=== PATIENT | male | born 1955 | race Caucasian/White ===

== ENCOUNTER 2018-02-20 00:04 | Emergency (ER) | payer OTHER ==
[~2018-02-20] VITALS: Ht 160 cm; Wt 74.8 kg
--- NOTE | 2018-02-20 00:26 | NUR ---
RECEIVED PATIENT IN ROOM WITH C/O LEFT SIDED BACK RADIATING DOWN TO LEG, SEEN IN ER THIS AM FOR SAME. DX WITH SCIATICA, PAIN NOW WORST, ER DR AT BEDSIDE, ORDERS NOTED.
[2018-02-20] MEDS ORDERED: HYDROMORPHONE 1 MG/1 ML DISP.SYRIN IM ONE (00:30)
[2018-02-20] MEDS ORDERED: ONDANSETRON 4 MG/2 ML VIAL IM ONE (00:30)
[2018-02-20] MEDS ORDERED: ONDANSETRON 4 MG/2 ML VIAL ONE (00:32)
[2018-02-20] MEDS ORDERED: HYDROMORPHONE 2 MG/1 ML DISP.SYRIN ONE (00:32)
--- NOTE | 2018-02-20 00:32 | NUR ---
MEDICATED WITTH DILAUDID 2MG IM AND ZOFRAN 4MG IM.
--- NOTE | 2018-02-20 00:46 | NUR ---
FEELING BETTER, PAIN NOW 5/10, DISCHARGE HOME WITH RX AND INSTRUCTIONS TO F/U WITH PMD IN AM. AMBULATE OUT OF ER WITH IN STABLE CONDITION.
[2018-02-20 00:48] VITALS: BP 128/87
[2018-02-20] MEDS ORDERED: DILT180C66 PO (16:58)
[2018-02-20] MEDS ORDERED: TAMS-3 PO (16:58)
[2018-02-20] MEDS ORDERED: HYDROCHLOROTHIAZIDE PO (16:58)
[2018-02-20] MEDS ORDERED: CANDESARTAN PO (16:58)
== END 2018-02-20 00:45 | disposition home or self-care (01) ==
LOC: ER 00:10
DX: M54.42 Lumbago with sciatica, left side (principal); I10 Essential (primary) hypertension
CPT/HCPCS: 96372 ×2; 99283; J1170; J2405; A4663

== ENCOUNTER 2019-12-01 16:13 | Emergency (ER) | payer OTHER ==
[~2019-12-01] VITALS: Ht 162.6 cm; Wt 74.8 kg
[~2019-12-01 16:13] MED LIST: CANDESARTAN PO; DILT180C66 PO; HYDROCHLOROTHIAZIDE PO; TAMS-3 PO
--- NOTE | 2019-12-01 17:00 | NUR ---
Dr. Polanco at the bedside for MSE.
[2019-12-01] MEDS ORDERED: LIDOCAINE 2% (UROJET) 10 ML JELLY MM ONE (17:15)
--- NOTE | 2019-12-01 17:28 | NUR ---
Patient is crying quietly & saying, "I feel so much better." MD notified. Comfort and safety measures maintained.
[2019-12-01 17:46] LABS: *BILIRUBIN,URIN NEGATIVE (NEGATIVE); *CLARITY,URINE CLEAR (CLEAR); *COLOR,URINE YELLOW (YELLOW); *KETONES,URINE NEGATIVE (NEGATIVE); *UROBILINOGEN,URINE 0.2 E.U./dl (NORMAL); LEUKOCYTE ESTERASE ,URINE NEGATIVE (NEGATIVE); NITRITE, URINE NEGATIVE (NEGATIVE); UGLUCOSE TRACE (NEGATIVE)
[2019-12-01 17:49] LABS: BASOPHILS % (AUTO) 0.3 % (0.0-2.0); EOSINOPHILS # (AUTO) 0.1 K/uL (0.0-0.7); EOSINOPHILS % (AUTO) 0.6 % (0.0-7.0); HEMATOCRIT 40.2 % (36.7-47.1); LYMPHOCYTES # (AUTO) 0.7 K/uL (20.0-40.0); LYMPHOCYTES % (AUTO) 6.7 % (20.5-51.5); MEAN CORPUSCULAR HGB CONC 35 g/dL (32.5-36.3); MEAN CORPUSCULAR VOLUME 91.7 fL (73.0-96.2); MONOCYTES # (AUTO) 0.6 K/uL (2.0-10.0); MONOCYTES % (AUTO) 5.6 % (0.0-11.0); NEUTROPHILS % (AUTO) 86.8 % (38.5-71.5); PLATELET COUNT (AUTO) 254 K/uL (152-348); RED BLOOD CELL COUNT(AUTO) 4.38 MIL/uL (4.06-5.63); WHITE BLOOD COUNT (AUTO) 10.4 K/uL (3.6-10.2)
[2019-12-01 17:51] LABS: *BLOOD, URINE TRACE (NEGATIVE)
[2019-12-01 17:59] LABS: BILIRUBIN,TOTAL 1.1 mg/dL (0.2-1.0); POTASSIUM 3.5 mmol/L (3.5-5.1); TOTAL PROTEIN, SERUM 6.4 g/dL (6.4-8.2)
--- NOTE | 2019-12-01 19:11 | NUR ---
Full SBAR report given to MORENO Mares.
--- NOTE | 2019-12-01 19:46 | NUR ---
Received patient from Moshe MAYER, no signs of distress noted at this time
--- NOTE | 2019-12-01 20:12 | NUR ---
Urine foleybag switched to leg bag at this time
--- NOTE | 2019-12-01 20:12 | NUR ---
Patient discharged to home in stable condition. Ambulated with steady gait at this time. Written and verbal after care instructions given. Took all belongings, Banks care instructions given, instructed to follow up. 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 Patient verbalizes understanding of instructions. Stressed follow up or return to ER for worsening s/s.
[2019-12-01 20:15] VITALS: BP 148/87
[2019-12-01 20:20] LABS: BACTERIA,URINE FEW /HPF (NONE SEEN); SQUAMOUS EPITHELIAL CELL,UR FEW /HPF (NONE SEEN); WBC,URINE 0-3 /HPF (0-3)
== END 2019-12-01 20:15 | disposition home or self-care (01) ==
LOC: ER 16:16
DX: R33.9 Retention of urine, unspecified (principal); I10 Essential (primary) hypertension; R19.7 Diarrhea, unspecified
CPT/HCPCS: 36415; 51702; 74021; 85025; A4663

== ENCOUNTER 2020-04-01 17:44 | Inpatient (IN) | payer OTHER ==
[~2020-04-01] VITALS: Ht 162.6 cm; Wt 74.8 kg
[~2020-04-01 17:44] MED LIST changes: -CANDESARTAN PO; +CEPH-570 PO; -HYDROCHLOROTHIAZIDE PO; +MECL-159 PO
[2020-04-01] MEDS ORDERED: CAND1TAB16 PO (18:13)
[2020-04-01] MEDS ORDERED: DILT180C90 PO (18:13)
[2020-04-01] MEDS ORDERED: CARB-93 PO (18:13)
[2020-04-01] MEDS ORDERED: VITAMIN D PO (18:13)
[2020-04-01] MEDS ORDERED: ONDANSETRON 4 MG/2 ML VIAL IV ONE (20:00)
[2020-04-01] MEDS ORDERED: IV NORMAL SALINE 1000 ML BAG IV ONE (20:00)
[2020-04-01 21:15] LABS: BASOPHILS % (AUTO) 0.2 % (0.0-2.0); EOSINOPHILS % (AUTO) 0.1 % (0.0-7.0); HEMATOCRIT 37.2 % (36.7-47.1); HEMOGLOBIN 13.2 g/dL (12.5-16.3); LYMPHOCYTES # (AUTO) 0.5 K/uL (20.0-40.0); LYMPHOCYTES % (AUTO) 7.3 % (20.5-51.5); MEAN CORPUSCULAR HEMOGLOBIN 32.6 uug (23.8-33.4); MEAN CORPUSCULAR HGB CONC 35 g/dL (32.5-36.3); MEAN CORPUSCULAR VOLUME 91.9 fL (73.0-96.2); MONOCYTES # (AUTO) 0.2 K/uL (2.0-10.0); NEUTROPHILS # (AUTO) 6.2 K/uL (1.8-8.9); NEUTROPHILS % (AUTO) 89.4 % (38.5-71.5); PLATELET COUNT (AUTO) 241 K/uL (152-348); RED BLOOD CELL COUNT(AUTO) 4.05 MIL/uL (4.06-5.63); WHITE BLOOD COUNT (AUTO) 6.9 K/uL (3.6-10.2)
[2020-04-01] MEDS ORDERED: ONDANSETRON 4 MG/2 ML VIAL ONE (21:16)
[2020-04-01 21:29] LABS: BILIRUBIN,DIRECT 0.3 mg/dL (0.0-0.2); CREATININE 0.7 mg/dL (0.6-1.3); POTASSIUM 3.7 mmol/L (3.5-5.1); TOTAL PROTEIN, SERUM 6.7 g/dL (6.4-8.2)
[2020-04-01] MEDS ORDERED: IV NS 1000 ML 1,000 ML IV ONE (21:45)
[2020-04-02] VITALS (7 sets, daily range): BP systolic 116–149; BP diastolic 71–85
[2020-04-02] MEDS ORDERED: ONDANSETRON 4 MG/2 ML VIAL IV PRN (00:30)
[2020-04-02] MEDS ORDERED: ACETAMINOPHEN 650 MG SUPP.RECT RC PRN (00:30)
[2020-04-02] MEDS ORDERED: Z GUARD REMEDY PASTE 57 GM TUBE TOP PRN (00:30)
[2020-04-02] MEDS: ENOXAPARIN SODIUM 40 MG/0.4 ML DISP.SYRIN SQ SCH ×2 (00:39→21:03)
[2020-04-02] MEDS: IV NS 1000 ML 1,000 ML IV PRN ×2 (00:43→18:16)
[2020-04-02] MEDS ORDERED: DILT90TA10 PO (07:35)
[2020-04-02 08:45] LABS: BILIRUBIN,TOTAL 1.9 mg/dL (0.2-1.0); CREATININE 0.7 mg/dL (0.6-1.3); POTASSIUM 4.3 mmol/L (3.5-5.1); TOTAL PROTEIN, SERUM 6.3 g/dL (6.4-8.2)
[2020-04-02] MEDS: HYDROCHLOROTHIAZIDE 12.5 MG CAPSULE PO SCH (09:00)
[2020-04-02] MEDS ORDERED: Medication Not On Formulary EA (Candesartan/Hydrochlorothiazid (Candesartan-Hctz 32-12.5 PO SCH (09:00)
[2020-04-02] MEDS: DILTIAZEM HCL 90 MG TABLET PO SCH (09:00)
[2020-04-02] MEDS ORDERED: DILTIAZEM HCL CD 180 MG CAP.SR.24H PO SCH (09:00)
[2020-04-02] MEDS ORDERED: PANTOPRAZOLE SODIUM 40 MG VIAL IV SCH (09:00)
[2020-04-02] MEDS: LOSARTAN POTASSIUM 50 MG TABLET PO SCH (09:00)
[2020-04-02] MEDS ORDERED: FAMOTIDINE. 20 MG/2 ML VIAL IV ONE (09:13)
[2020-04-02] MEDS: FAMOTIDINE. 20 MG/2 ML VIAL IV SCH ×2 (09:14→21:03)
[2020-04-02 09:54] LABS: BASOPHILS % (AUTO) 0.1 % (0.0-2.0); EOSINOPHILS % (AUTO) 0.6 % (0.0-7.0); HEMATOCRIT 39.5 % (36.7-47.1); HEMOGLOBIN 13.8 g/dL (12.5-16.3); LYMPHOCYTES # (AUTO) 0.7 K/uL (20.0-40.0); LYMPHOCYTES % (AUTO) 8.6 % (20.5-51.5); MEAN CORPUSCULAR HEMOGLOBIN 32.6 uug (23.8-33.4); MEAN CORPUSCULAR HGB CONC 35 g/dL (32.5-36.3); MEAN CORPUSCULAR VOLUME 93.2 fL (73.0-96.2); MONOCYTES # (AUTO) 0.6 K/uL (2.0-10.0); MONOCYTES % (AUTO) 7.2 % (0.0-11.0); NEUTROPHILS # (AUTO) 6.7 K/uL (1.8-8.9); NEUTROPHILS % (AUTO) 83.5 % (38.5-71.5); PLATELET COUNT (AUTO) 277 K/uL (152-348); RED BLOOD CELL COUNT(AUTO) 4.24 MIL/uL (4.06-5.63); WHITE BLOOD COUNT (AUTO) 8.1 K/uL (3.6-10.2)
[2020-04-02 16:04] LABS: *BILIRUBIN,URIN NEGATIVE (NEGATIVE); *CLARITY,URINE CLEAR (CLEAR); *COLOR,URINE YELLOW (YELLOW); *KETONES,URINE 2+ (NEGATIVE); *UROBILINOGEN,URINE 0.2 E.U./dl (NORMAL); LEUKOCYTE ESTERASE ,URINE NEGATIVE (NEGATIVE); NITRITE, URINE NEGATIVE (NEGATIVE); PH,URINE 6.5 (5.0-8.0); UGLUCOSE NEGATIVE (NEGATIVE)
[2020-04-02 16:06] LABS: *BLOOD, URINE TRACE LYSED (NEGATIVE)
[2020-04-02 16:52] LABS: BACTERIA,URINE NONE SEEN /HPF (NONE SEEN); SQUAMOUS EPITHELIAL CELL,UR NONE SEEN /HPF (NONE SEEN); WBC,URINE 0-3 /HPF (0-3)
[2020-04-03] VITALS: BP 114/65
[2020-04-03 04:35] VITALS: BP 128/71
[2020-04-03 07:36] LABS: BASOPHILS % (AUTO) 0.5 % (0.0-2.0); EOSINOPHILS # (AUTO) 0.1 K/uL (0.0-0.7); EOSINOPHILS % (AUTO) 2.6 % (0.0-7.0); HEMATOCRIT 39.6 % (36.7-47.1); HEMOGLOBIN 13.8 g/dL (12.5-16.3); LYMPHOCYTES # (AUTO) 1.2 K/uL (20.0-40.0); LYMPHOCYTES % (AUTO) 23.6 % (20.5-51.5); MEAN CORPUSCULAR HEMOGLOBIN 32.7 uug (23.8-33.4); MEAN CORPUSCULAR HGB CONC 35 g/dL (32.5-36.3); MEAN CORPUSCULAR VOLUME 93.6 fL (73.0-96.2); MONOCYTES # (AUTO) 0.5 K/uL (2.0-10.0); MONOCYTES % (AUTO) 9.4 % (0.0-11.0); NEUTROPHILS # (AUTO) 3.2 K/uL (1.8-8.9); NEUTROPHILS % (AUTO) 63.9 % (38.5-71.5); PLATELET COUNT (AUTO) 266 K/uL (152-348); RED BLOOD CELL COUNT(AUTO) 4.23 MIL/uL (4.06-5.63); WHITE BLOOD COUNT (AUTO) 4.9 K/uL (3.6-10.2)
[2020-04-03 07:53] LABS: CREATININE 0.9 mg/dL (0.6-1.3); MAGNESIUM 1.8 mg/dL (1.8-2.4); PHOSPHOROUS 2.5 mg/dL (2.5-4.9); POTASSIUM 3.6 mmol/L (3.5-5.1); URIC ACID 4.4 mg/dL (3.5-7.2)
[2020-04-03] MEDS: HYDROCHLOROTHIAZIDE 12.5 MG CAPSULE PO SCH (08:08)
[2020-04-03] MEDS: LOSARTAN POTASSIUM 50 MG TABLET PO SCH (08:08)
[2020-04-03] MEDS: FAMOTIDINE. 20 MG/2 ML VIAL IV SCH (08:17)
[2020-04-03] MEDS: IV NS 1000 ML 1,000 ML IV PRN (08:23)
[2020-04-03] MEDS: DILTIAZEM HCL 90 MG TABLET PO SCH (08:40)
[2020-04-03 08:54] LABS: THYROID STIMULATING HORMONE 2.49 mIU/mL (0.358-3.740)
[2020-04-03 12:00] VITALS: BP 140/74
[2020-04-03] MEDS ORDERED: CEFTRIAXONE 1 G in IV DEXTROSE 5% 50 ML IV SCH (15:00)
[2020-04-03 16:00] VITALS: BP 124/77
[2020-04-03 20:00] VITALS: BP 122/72
[2020-04-03] MEDS: FAMOTIDINE 20 MG TABLET PO SCH (21:00)
[2020-04-03] MEDS: risperiDONE 1 MG TABLET PO SCH (21:00)
[2020-04-03] MEDS: ENOXAPARIN SODIUM 40 MG/0.4 ML DISP.SYRIN SQ SCH (21:01)
[2020-04-03] MEDS ORDERED: VANCOMYCIN IV 1,500 MG in IV DEXTROSE 5% 500 ML IV ONE (21:30)
[2020-04-03] MEDS ORDERED: VANCOMYCIN HCL 500 MG VIAL ONE (22:44)
[2020-04-03] MEDS ORDERED: VANCOMYCIN 1000 MG VIAL ONE (22:44)
[2020-04-04] VITALS: BP 130/70
[2020-04-04 04:00] VITALS: BP 134/82
[2020-04-04 07:56] LABS: CREATININE 0.8 mg/dL (0.6-1.3); POTASSIUM 3.4 mmol/L (3.5-5.1)
[2020-04-04] MEDS: risperiDONE 1 MG TABLET PO SCH ×2 (08:00→20:56)
[2020-04-04] MEDS: HYDROCHLOROTHIAZIDE 12.5 MG CAPSULE PO SCH (08:00)
[2020-04-04] MEDS: LOSARTAN POTASSIUM 50 MG TABLET PO SCH (08:00)
[2020-04-04] MEDS: FAMOTIDINE 20 MG TABLET PO SCH ×2 (08:00→20:56)
[2020-04-04] MEDS: DILTIAZEM HCL 90 MG TABLET PO SCH (08:00)
[2020-04-04 08:03] LABS: BASOPHILS % (AUTO) 0.8 % (0.0-2.0); EOSINOPHILS # (AUTO) 0.3 K/uL (0.0-0.7); HEMATOCRIT 40.9 % (36.7-47.1); HEMOGLOBIN 14.4 g/dL (12.5-16.3); LYMPHOCYTES # (AUTO) 1.2 K/uL (20.0-40.0); LYMPHOCYTES % (AUTO) 25.2 % (20.5-51.5); MEAN CORPUSCULAR HGB CONC 35 g/dL (32.5-36.3); MEAN CORPUSCULAR VOLUME 93.8 fL (73.0-96.2); MONOCYTES # (AUTO) 0.4 K/uL (2.0-10.0); MONOCYTES % (AUTO) 8.4 % (0.0-11.0); NEUTROPHILS # (AUTO) 2.9 K/uL (1.8-8.9); NEUTROPHILS % (AUTO) 59.6 % (38.5-71.5); PLATELET COUNT (AUTO) 269 K/uL (152-348); RED BLOOD CELL COUNT(AUTO) 4.36 MIL/uL (4.06-5.63); WHITE BLOOD COUNT (AUTO) 4.8 K/uL (3.6-10.2)
[2020-04-04] MEDS ORDERED: POTASSIUM CHLORIDE 20 MEQ TAB.PRT.SR PO SCH (09:45)
[2020-04-04] MEDS ORDERED: VANCOMYCIN IV 1,250 MG in IV DEXTROSE 5% 250 ML IV SCH (11:00)
[2020-04-04 12:26] VITALS: BP 135/83
[2020-04-04 15:46] VITALS: BP 137/75
[2020-04-04] MEDS: IV NS 1000 ML 1,000 ML IV PRN ×2 (17:04)
[2020-04-04 20:00] VITALS: BP 121/71
[2020-04-04] MEDS: ENOXAPARIN SODIUM 40 MG/0.4 ML DISP.SYRIN SQ SCH (20:59)
[2020-04-05] VITALS: BP 137/88
[2020-04-05 05:07] VITALS: BP 144/86
[2020-04-05 07:37] LABS: BASOPHILS % (AUTO) 0.7 % (0.0-2.0); CREATININE 0.8 mg/dL (0.6-1.3); EOSINOPHILS # (AUTO) 0.4 K/uL (0.0-0.7); EOSINOPHILS % (AUTO) 6.1 % (0.0-7.0); HEMATOCRIT 43.4 % (36.7-47.1); HEMOGLOBIN 14.7 g/dL (12.5-16.3); LYMPHOCYTES # (AUTO) 1.3 K/uL (20.0-40.0); LYMPHOCYTES % (AUTO) 22.6 % (20.5-51.5); MEAN CORPUSCULAR HEMOGLOBIN 32.4 uug (23.8-33.4); MEAN CORPUSCULAR HGB CONC 34 g/dL (32.5-36.3); MEAN CORPUSCULAR VOLUME 95.8 fL (73.0-96.2); MONOCYTES # (AUTO) 0.5 K/uL (2.0-10.0); MONOCYTES % (AUTO) 8.1 % (0.0-11.0); NEUTROPHILS # (AUTO) 3.7 K/uL (1.8-8.9); NEUTROPHILS % (AUTO) 62.5 % (38.5-71.5); PLATELET COUNT (AUTO) 277 K/uL (152-348); POTASSIUM 3.8 mmol/L (3.5-5.1); RED BLOOD CELL COUNT(AUTO) 4.53 MIL/uL (4.06-5.63)
[2020-04-05 08:00] VITALS: BP 137/83
[2020-04-05] MEDS: risperiDONE 1 MG TABLET PO SCH ×2 (08:04→21:00)
[2020-04-05] MEDS: HYDROCHLOROTHIAZIDE 12.5 MG CAPSULE PO SCH (08:04)
[2020-04-05] MEDS: FAMOTIDINE 20 MG TABLET PO SCH ×2 (08:04→21:00)
[2020-04-05] MEDS: LOSARTAN POTASSIUM 50 MG TABLET PO SCH (08:08)
[2020-04-05] MEDS: DILTIAZEM HCL 90 MG TABLET PO SCH (08:09)
[2020-04-05] MEDS: IV NS 1000 ML 1,000 ML IV PRN (09:04)
[2020-04-05 11:00] VITALS: BP 131/72
[2020-04-05] MEDS: LORAZEPAM 2 MG/1 ML VIAL IV PRN ×2 (12:17→18:15)
[2020-04-05] MEDS ORDERED: VANCOMYCIN IV 1,250 MG in IV DEXTROSE 5% 250 ML IV SCH (13:00)
[2020-04-05 16:17] VITALS: BP 142/84
[2020-04-05 21:14] VITALS: BP 142/84
[2020-04-05] MEDS: ENOXAPARIN SODIUM 40 MG/0.4 ML DISP.SYRIN SQ SCH (22:45)
[2020-04-06 00:29] VITALS: BP 148/85
[2020-04-06 06:09] VITALS: BP 145/84
[2020-04-06] MEDS: IV NS 1000 ML 1,000 ML IV PRN (06:37)
[2020-04-06 06:58] LABS: CREATININE 0.8 mg/dL (0.6-1.3); POTASSIUM 4.2 mmol/L (3.5-5.1)
[2020-04-06 07:23] LABS: BASOPHILS % (AUTO) 0.5 % (0.0-2.0); EOSINOPHILS # (AUTO) 0.4 K/uL (0.0-0.7); HEMOGLOBIN 14.6 g/dL (12.5-16.3); LYMPHOCYTES # (AUTO) 1.2 K/uL (20.0-40.0); LYMPHOCYTES % (AUTO) 17.1 % (20.5-51.5); MEAN CORPUSCULAR HEMOGLOBIN 32.7 uug (23.8-33.4); MEAN CORPUSCULAR HGB CONC 33 g/dL (32.5-36.3); MEAN CORPUSCULAR VOLUME 98.3 fL (73.0-96.2); MONOCYTES # (AUTO) 0.6 K/uL (2.0-10.0); MONOCYTES % (AUTO) 8.1 % (0.0-11.0); NEUTROPHILS # (AUTO) 4.9 K/uL (1.8-8.9); NEUTROPHILS % (AUTO) 69.3 % (38.5-71.5); PLATELET COUNT (AUTO) 235 K/uL (152-348); RED BLOOD CELL COUNT(AUTO) 4.47 MIL/uL (4.06-5.63); WHITE BLOOD COUNT (AUTO) 7.1 K/uL (3.6-10.2)
[2020-04-06] MEDS: risperiDONE 1 MG TABLET PO SCH ×2 (08:09→21:28)
[2020-04-06] MEDS: HYDROCHLOROTHIAZIDE 12.5 MG CAPSULE PO SCH (08:09)
[2020-04-06] MEDS: LORAZEPAM 2 MG/1 ML VIAL IV PRN (08:09)
[2020-04-06] MEDS: LOSARTAN POTASSIUM 50 MG TABLET PO SCH (08:09)
[2020-04-06] MEDS: FAMOTIDINE 20 MG TABLET PO SCH ×2 (08:10→21:28)
[2020-04-06] MEDS: DILTIAZEM HCL 90 MG TABLET PO SCH (08:11)
[2020-04-06 12:00] VITALS: BP 135/84
[2020-04-06 17:00] VITALS: BP 124/77
[2020-04-06 21:11] VITALS: BP 137/79
[2020-04-06] MEDS: ENOXAPARIN SODIUM 40 MG/0.4 ML DISP.SYRIN SQ SCH (21:29)
[2020-04-07 00:13] VITALS: BP 130/80
[2020-04-07 04:35] VITALS: BP 156/88
[2020-04-07 06:38] LABS: BASOPHILS % (AUTO) 0.7 % (0.0-2.0); EOSINOPHILS # (AUTO) 0.3 K/uL (0.0-0.7); EOSINOPHILS % (AUTO) 5.6 % (0.0-7.0); HEMATOCRIT 40.7 % (36.7-47.1); HEMOGLOBIN 13.9 g/dL (12.5-16.3); LYMPHOCYTES % (AUTO) 18.3 % (20.5-51.5); MEAN CORPUSCULAR HEMOGLOBIN 32.6 uug (23.8-33.4); MEAN CORPUSCULAR HGB CONC 34 g/dL (32.5-36.3); MEAN CORPUSCULAR VOLUME 95.4 fL (73.0-96.2); MONOCYTES # (AUTO) 0.3 K/uL (2.0-10.0); MONOCYTES % (AUTO) 6.2 % (0.0-11.0); NEUTROPHILS # (AUTO) 3.9 K/uL (1.8-8.9); NEUTROPHILS % (AUTO) 69.2 % (38.5-71.5); PLATELET COUNT (AUTO) 265 K/uL (152-348); RED BLOOD CELL COUNT(AUTO) 4.26 MIL/uL (4.06-5.63); WHITE BLOOD COUNT (AUTO) 5.6 K/uL (3.6-10.2)
[2020-04-07 07:07] LABS: CREATININE 0.8 mg/dL (0.6-1.3); POTASSIUM 3.6 mmol/L (3.5-5.1)
[2020-04-07] MEDS: FAMOTIDINE 20 MG TABLET PO SCH ×2 (08:12→22:40)
[2020-04-07] MEDS: LOSARTAN POTASSIUM 50 MG TABLET PO SCH (08:12)
[2020-04-07] MEDS: HYDROCHLOROTHIAZIDE 12.5 MG CAPSULE PO SCH (08:12)
[2020-04-07] MEDS: risperiDONE 1 MG TABLET PO SCH ×2 (08:12→22:47)
[2020-04-07] MEDS: DILTIAZEM HCL 90 MG TABLET PO SCH (08:14)
[2020-04-07 11:47] VITALS: BP 132/84
[2020-04-07] MEDS: IV NS 1000 ML 1,000 ML IV PRN (14:15)
[2020-04-07 16:38] VITALS: BP 140/80
[2020-04-07 20:40] VITALS: BP 142/82
[2020-04-07] MEDS: ENOXAPARIN SODIUM 40 MG/0.4 ML DISP.SYRIN SQ SCH (21:00)
[2020-04-08 00:16] VITALS: BP 137/80
[2020-04-08 05:04] VITALS: BP 128/77
[2020-04-08 07:12] LABS: BASOPHILS # (AUTO) 0.1 K/uL (0.0-8.0); BASOPHILS % (AUTO) 0.8 % (0.0-2.0); EOSINOPHILS # (AUTO) 0.5 K/uL (0.0-0.7); EOSINOPHILS % (AUTO) 8.6 % (0.0-7.0); HEMOGLOBIN 15.4 g/dL (12.5-16.3); LYMPHOCYTES # (AUTO) 1.7 K/uL (20.0-40.0); LYMPHOCYTES % (AUTO) 26.7 % (20.5-51.5); MEAN CORPUSCULAR HEMOGLOBIN 32.7 uug (23.8-33.4); MEAN CORPUSCULAR HGB CONC 34 g/dL (32.5-36.3); MEAN CORPUSCULAR VOLUME 95.7 fL (73.0-96.2); MONOCYTES # (AUTO) 0.4 K/uL (2.0-10.0); MONOCYTES % (AUTO) 7.2 % (0.0-11.0); NEUTROPHILS # (AUTO) 3.6 K/uL (1.8-8.9); NEUTROPHILS % (AUTO) 56.7 % (38.5-71.5); PLATELET COUNT (AUTO) 273 K/uL (152-348); WHITE BLOOD COUNT (AUTO) 6.3 K/uL (3.6-10.2)
[2020-04-08 07:49] LABS: CREATININE 0.9 mg/dL (0.6-1.3)
[2020-04-08 08:00] VITALS: BP 153/83
[2020-04-08] MEDS: HYDROCHLOROTHIAZIDE 12.5 MG CAPSULE PO SCH (08:18)
[2020-04-08] MEDS: DILTIAZEM HCL 90 MG TABLET PO SCH (08:18)
[2020-04-08] MEDS: risperiDONE 1 MG TABLET PO SCH ×2 (08:18→20:52)
[2020-04-08] MEDS: FAMOTIDINE 20 MG TABLET PO SCH ×2 (08:18→20:51)
[2020-04-08] MEDS: LOSARTAN POTASSIUM 50 MG TABLET PO SCH (08:18)
[2020-04-08 11:00] VITALS: BP 127/80
[2020-04-08 15:23] VITALS: BP 136/84
[2020-04-08 20:06] VITALS: BP 126/75
[2020-04-08] MEDS: LORAZEPAM 2 MG/1 ML VIAL IV PRN (20:41)
[2020-04-08] MEDS: ENOXAPARIN SODIUM 40 MG/0.4 ML DISP.SYRIN SQ SCH (21:01)
[2020-04-09 00:03] VITALS: BP 129/77
[2020-04-09 04:24] VITALS: BP 136/85
[2020-04-09 04:32] VITALS: BP 136/84
[2020-04-09] MEDS: LOSARTAN POTASSIUM 50 MG TABLET PO SCH (10:16)
[2020-04-09] MEDS: DILTIAZEM HCL 90 MG TABLET PO SCH (10:16)
[2020-04-09] MEDS: FAMOTIDINE 20 MG TABLET PO SCH (10:16)
[2020-04-09] MEDS: risperiDONE 1 MG TABLET PO SCH (10:17)
[2020-04-09 11:16] VITALS: BP 134/85
[2020-04-09] MEDS ORDERED: LOSA50TA3 PO (12:27)
[2020-04-09] MEDS ORDERED: FAMO20TA8 PO (12:27)
[2020-04-09] MEDS ORDERED: DILT90TA10 PO (12:27)
[2020-04-09] MEDS ORDERED: ENOX40DI SQ (12:27)
[2020-04-09] MEDS ORDERED: TAMS-3 PO (12:27)
[2020-04-09] MEDS ORDERED: ACET650S24 RC (12:27)
[2020-04-09] MEDS ORDERED: RISP1TAB7 PO (12:27)
[2020-04-09 15:59] VITALS: BP 111/69
[2020-04-09 20:30] VITALS: BP 105/65
== END 2020-04-09 20:50 | DRG 426 ==
LOC: ER 17:44 → TRANSITION 04-02 00:22 → TELE3 04-02 11:05 → TELE 04-08 17:00
PROVIDERS: ADMIT Nurse Practitioner Acute Care; ATTEND Nurse Practitioner Acute Care
DX: E87.1 Hypo-osmolality and hyponatremia (principal); G93.41 Metabolic encephalopathy; D68.69 Other thrombophilia; E86.1 Hypovolemia; F02.80 Dementia in other diseases classified elsewhere, unspecified severity, without behavioral disturbance, psychotic disturbance, mood disturbance, and anxiety; G20 Parkinson's disease; I48.91 Unspecified atrial fibrillation; I10 Essential (primary) hypertension; F29 Unspecified psychosis not due to a substance or known physiological condition; R53.1 Weakness; Z20.822 Contact with and (suspected) exposure to COVID-19; N40.0 Benign prostatic hyperplasia without lower urinary tract symptoms
CPT/HCPCS: 36415; 70030-TC; 70450; 70551; 71045; 82533; 83605; 83735; 84100; 84443; 84550; 85025; 87040; 93005; A4663; G0378; J0696; J1650; J2060; J2405; J3370; J3490; J7030; J7060

== ENCOUNTER 2020-05-06 23:47 | Inpatient (IN) | payer OTHER ==
[~2020-05-06] VITALS: Ht 172.7 cm; Wt 70.3 kg
[~2020-05-06 23:47] MED LIST changes: +ACET650S24 RC; +CAND1TAB16 PO; +CARB-93 PO; -CEPH-570 PO; -DILT180C66 PO; +DILT90TA10 PO; +ENOX40DI SQ; +FAMO20TA8 PO; +LOSA50TA3 PO; -MECL-159 PO; +RISP1TAB7 PO; +VITAMIN D PO
--- NOTE | 2020-05-06 23:55 | NUR ---
Dr Glover at bedside for MSE.
[2020-05-07 00:21] LABS: CARBON DIOXIDE 32 mmol/L (21-32); CHLORIDE 104 mmol/L (98-107); CREATININE 1.1 mg/dL (0.6-1.3); GLUCOSE 123 mg/dL (74-106); POTASSIUM 3.7 mmol/L (3.5-5.1); UREA NITROGEN, BLOOD 18 mg/dL (7-18)
[2020-05-07 00:26] LABS: BASOPHILS % (AUTO) 0.5 % (0.0-2.0); EOSINOPHILS # (AUTO) 0.4 K/uL (0.0-0.7); EOSINOPHILS % (AUTO) 7.1 % (0.0-7.0); HEMATOCRIT 46.8 % (36.7-47.1); HEMOGLOBIN 15.9 g/dL (12.5-16.3); LYMPHOCYTES # (AUTO) 1.8 K/uL (20.0-40.0); MEAN CORPUSCULAR HEMOGLOBIN 32.5 uug (23.8-33.4); MEAN CORPUSCULAR HGB CONC 34 g/dL (32.5-36.3); MEAN CORPUSCULAR VOLUME 95.6 fL (73.0-96.2); MONOCYTES # (AUTO) 0.5 K/uL (2.0-10.0); MONOCYTES % (AUTO) 7.7 % (0.0-11.0); NEUTROPHILS # (AUTO) 3.3 K/uL (1.8-8.9); NEUTROPHILS % (AUTO) 54.7 % (38.5-71.5); PLATELET COUNT (AUTO) 231 K/uL (152-348); WHITE BLOOD COUNT (AUTO) 5.9 K/uL (3.6-10.2)
[2020-05-07 00:27] LABS: ALANINE AMINOTRANSFERASE 21 U/L (16-63); ALKALINE PHOSPHATASE 83 U/L (50-136); ASPARTATE AMINOTRANSFERASE 15 U/L (15-37); BILIRUBIN,DIRECT 0.2 mg/dL (0.0-0.2); BILIRUBIN,TOTAL 0.9 mg/dL (0.2-1.0); TOTAL PROTEIN, SERUM 6.4 g/dL (6.4-8.2)
--- NOTE | 2020-05-07 00:27 | NUR ---
Pt resting in bed, all orders carried out.
[2020-05-07 00:30] LABS: ETHANOL 4 MG/DL (0-0)
[2020-05-07] MEDS ORDERED: ONDANSETRON 4 MG/2 ML VIAL IV PRN (01:15)
[2020-05-07] MEDS ORDERED: Z GUARD REMEDY PASTE 57 GM TUBE TOP PRN (01:15)
[2020-05-07] MEDS ORDERED: MAGNESIUM HYDROXIDE 30 ML LIQUID UDC PO PRN (01:15)
--- NOTE | 2020-05-07 01:30 | NUR ---
nailer hand aware of possible Med Surg admission. Insurance is being contacted for auth.
[2020-05-07 01:58] LABS: ACETAMINOPHEN < 2.0 ug/mL (10-30)
--- NOTE | 2020-05-07 02:51 | NUR ---
Patient will be admitted to our hospital, no answer from insurance.
--- NOTE | 2020-05-07 02:58 | NUR ---
S/w Gino neville - [phone], aware of hospital admission.
--- NOTE | 2020-05-07 03:11 | NUR ---
Pt will be going to Room 306 per Fely MAYER
--- NOTE | 2020-05-07 04:18 | NUR ---
Pt resting well at this time, no signs of acute distress. VS monitored. Pending admission. toby maker will call me back.
--- NOTE | 2020-05-07 04:45 | NUR ---
Report given to Fely MAYER.
[2020-05-07 06:00] VITALS: BP 130/86
[2020-05-07] MEDS: PANTOPRAZOLE SODIUM 40 MG TABLET.DR PO SCH (07:50)
[2020-05-07] MEDS: IV D5 1/2 NS 1000 ML 1,000 ML IV PRN ×2 (07:51→22:48)
[2020-05-07 11:49] VITALS: BP 118/74
--- NOTE | 2020-05-07 11:50 | NUR ---
Artificial Flowers Starcher Note: 10:00am: SW attempted to meet with the patient today. Patient is a 64 year old male, who was brought in to the ED on 05/07 by paramedics. Per paramedics report, the family states that patient has not been talking for a few days. Patient was also recently hospitalized in 03/2020 for altered mental status and being non-verbal. Per patients medical records, patients medical history includes HTN, Parkinsons, possible Bipolar/Schizophrenia. bleach boiler filler Flakito Busch was asked to see the patient while in the ED, however Flakito was unable to assess patient due to patient being non-verbal. Patient was asleep when SW entered his hospital room. SW attempted to awaken the patient by calling out his name 4 times, however patient was not arousable. CHE spoke with patients nurse Miladys, who stated that patient has been non-verbal, however ate his breakfast this morning. CHE met with charge nurse Imtiaz, who stated that a psychiatric consultation has been ordered. SW will follow-up with patient at a later time.
--- NOTE | 2020-05-07 12:10 | NUR ---
SW spoke with JAH Thomas, who stated that she spoke with patient's regarding tentative DC plans for the patients. Per Martha, the patient's would like for patient to get inpatient psychiatric care. This SW will work with patient's physicians, CM, patient, patient's family, and interdisciplinary team to ensure a safe and proper discharge for the patient.
--- NOTE | 2020-05-07 13:13 | NUR ---
Clinical Social Work Patient is not responsive to any evaluation at this time and is sleeping in his room and does not open his eyes to his name being called. He has Parkinsons and did well on a trial of Sinemet per 's report to Imtiaz MAYER. Patient was sent to [facility] upon discharge just a few weeks ago and his took him out of there. Patient is not a candidate for any inpatient psychiatric unit as he is unable to benefit from any milieu or other treatment. He was started on Risperdal by Dr Cira perez his last admission but per , " it did not help". It is not clear that this patient even has psychiatric issues. He is withdrawn and regressed at this time and admission notes indicate that he is aphasic. No mental status exam is possible as the patient will not cooperate with an evaluation. There is documentation that he may have Parkinsons dementia. Patient had a neurology consult last admission. More history form his is needed. Plan: 1.Discussed case with Ludwigalyssa in case management and advised her that patient is not a candidate for inpatient psychiatry and also an evaluation is not possible in his current condition 2. Dr Brian will do telepsychiatry evaluation and was notified of consult order by MORENO Kitchen and this typewriter tester today. 3. Case management will discuss [facility] with in anticipation for when the patient is medically clear It is not clear if patient is selectively mute vs catatonic or encephalopathic at this time.
--- NOTE | 2020-05-07 13:51 | NUR ---
DR POTTS CALLED AND ADVISED TO START PATIENT ON RISPERIDONE. PLS SEE NOTES
[2020-05-07] MEDS: risperiDONE 1 MG TABLET PO SCH ×2 (14:15→20:24)
--- NOTE | 2020-05-07 15:31 | NUR ---
Envelope Stuffer note: 3:00pm: This SW called patient's , Joycelyn, . Joycelyn was available and receptive to speaking with this SW. Joycelyn provided some information on patient's medical history and recent hospitalization in March. Joycelyn stated that patient experienced a similar situation in March 2020 when he suddenly stopped being verbal, and was hospitalized at [facility] for 8 days. Joycelyn stated that after the March 2020 hospitalization, [facility] was [facility], but after 3 weeks Joycelyn brought the patient home because she was not satisfied with the care being provided. Joycelyn stated that patient was verbal and coherent this past weekend, however on Tuesday patient became agitated and began displaying erratic behavior and hallucinations, pointing to the window and doors, stating "they're coming to fight". Joycelyn stated that patient then became non-verbal. Joycelyn reported concern over patient's psychological well-being, stating "he's able to speak, so it has to be psychological". Joycelyn reported that patient was diagnosed with Bipolar Disorder back in 1994 after experiencing a manic episode. Joycelyn stated that in February 2020, patient was seen by a neurologist, Dr. Karri Cartagena, , who had ordered an MRI. Joycelyn stated that patient had an MRI on 03/22. Joycelyn began to cry during this conversation, and CHE provided supportive counseling. Joycelyn expressed wishes to have patient return home after current hospitalization. CHE informed Joycelyn that patient will be seen by a psychiatrist during this hospitalization. Joycelyn asked if Joycelyn could speak with the psychiatrist, and this SW stated that CHE would relay this request to the psychiatrist. SW will continue to be available for the patient and patient's family, and will work with the interdisciplinary team for care coordination and to ensure a safe and proper discharge.
[2020-05-07 16:00] VITALS: BP 128/73
--- NOTE | 2020-05-07 16:00 | NUR ---
PATIENT UNABLE TO URINATE FOR SPECIMEN. IN AND OUT CATH DONE AND OBTAINED 700CC OF DARK AUGUSTUS URINE.
--- NOTE | 2020-05-07 18:55 | NUR ---
PATIENT REMAINS IN COMPLIANCE WITH PLAN OF CARE. PATIENT IS UNABLE TO VERBALLY COMMUNICATE BUT ABLE TO FEED HIMSELF WITHOUT ASSISTANCE. WILL START PT AND OT EVAL IN THE MORNING.
[2020-05-07 19:14] LABS: *BILIRUBIN,URIN NEGATIVE (NEGATIVE); *BLOOD, URINE 1+ (NEGATIVE); *CLARITY,URINE CLEAR (CLEAR); *COLOR,URINE YELLOW (YELLOW); *KETONES,URINE NEGATIVE (NEGATIVE); *UROBILINOGEN,URINE 0.2 E.U./dl (NORMAL); LEUKOCYTE ESTERASE ,URINE NEGATIVE (NEGATIVE); NITRITE, URINE NEGATIVE (NEGATIVE); UGLUCOSE TRACE (NEGATIVE)
[2020-05-07 19:20] LABS: *AMPHETAMINE, URINE NEGATIVE (NEGATIVE); *CANNABINOID, URINE NEGATIVE (NEGATIVE); *COCCAINE, URINE NEGATIVE (NEGATIVE); *OPIATE, URINE NEGATIVE (NEGATIVE); *PHENCYCLIDINE SCREEN,URINE NEGATIVE (NEGATIVE)
[2020-05-07 20:04] VITALS: BP 103/69
[2020-05-07 22:12] LABS: RBC,URINE 0-3 /HPF (0-3); WBC,URINE 0-3 /HPF (0-3)
[2020-05-07 22:13] LABS: BACTERIA,URINE NONE SEEN /HPF (NONE SEEN); SQUAMOUS EPITHELIAL CELL,UR NONE SEEN /HPF (NONE SEEN)
--- NOTE | 2020-05-07 22:52 | NUR ---
Received pt resting in bed and watching tv. Pt unable to verbally communicate but compliant with care. No acute distress noted. [place] Chaudhry 0/10. Due med given as ordered. IVF running at 75cc/hr, IV on left AC. Safety measures maintained. Call light within reach. Will continue to monitor.
[2020-05-08 04:00] VITALS: BP 106/55
[2020-05-08] MEDS: PANTOPRAZOLE SODIUM 40 MG TABLET.DR PO SCH (06:03)
[2020-05-08 07:10] LABS: BASOPHILS % (AUTO) 0.6 % (0.0-2.0); EOSINOPHILS # (AUTO) 0.4 K/uL (0.0-0.7); EOSINOPHILS % (AUTO) 7.6 % (0.0-7.0); HEMATOCRIT 40.1 % (36.7-47.1); HEMOGLOBIN 13.8 g/dL (12.5-16.3); LYMPHOCYTES # (AUTO) 1.5 K/uL (20.0-40.0); LYMPHOCYTES % (AUTO) 27.1 % (20.5-51.5); MEAN CORPUSCULAR HEMOGLOBIN 32.8 uug (23.8-33.4); MEAN CORPUSCULAR HGB CONC 34 g/dL (32.5-36.3); MEAN CORPUSCULAR VOLUME 95.5 fL (73.0-96.2); MONOCYTES # (AUTO) 0.5 K/uL (2.0-10.0); MONOCYTES % (AUTO) 9.2 % (0.0-11.0); NEUTROPHILS # (AUTO) 3.1 K/uL (1.8-8.9); NEUTROPHILS % (AUTO) 55.5 % (38.5-71.5); PLATELET COUNT (AUTO) 193 K/uL (152-348); RED BLOOD CELL COUNT(AUTO) 4.19 MIL/uL (4.06-5.63); WHITE BLOOD COUNT (AUTO) 5.5 K/uL (3.6-10.2)
[2020-05-08 07:40] LABS: CREATININE 0.9 mg/dL (0.6-1.3); MAGNESIUM 1.9 mg/dL (1.8-2.4); PHOSPHOROUS 3.9 mg/dL (2.5-4.9); POTASSIUM 3.6 mmol/L (3.5-5.1)
[2020-05-08 07:50] LABS: THYROID STIMULATING HORMONE 1.931 mIU/mL (0.358-3.740)
[2020-05-08] MEDS: risperiDONE 1 MG TABLET PO SCH ×2 (08:06→21:20)
[2020-05-08] MEDS: ACETAMINOPHEN 325 MG TABLET PO PRN ×2 (08:06→17:20)
--- NOTE | 2020-05-08 10:19 | NUR ---
SW met with patient's attending physician today, Kaelyn Jewell NP. Patient's case was discussed, along with plan of care. Neurology and psychiatry consultations are pending. CHE will continue to work with the interdisciplinary team to support care coordination and ensure a safe and proper discharge plan.
[2020-05-08 11:45] VITALS: BP 114/69
[2020-05-08] MEDS: IV D5 1/2 NS 1000 ML 1,000 ML IV PRN (12:29)
--- NOTE | 2020-05-08 15:00 | NUR ---
XR LUMBAR PUNCTURE DONE IN XRAY. FLUID SENT TO LAB FOR ANALYSIS
[2020-05-08 16:36] LABS: CSF GLUCOSE 70 mg/dL (40-70); CSF PROTEIN 26 mg/dL (15-45)
--- NOTE | 2020-05-08 17:00 | NUR ---
SEEN BY DR HOUSE FOR NEURO FOLLOW-UP SEE NOTES.
--- NOTE | 2020-05-08 18:16 | NUR ---
PATIENT VOIDED TWICE, EEG COMPLETED AT BEDSIDE
--- NOTE | 2020-05-08 18:21 | NUR ---
EEG COMPLETED AT BEDSIDE, WILL FOLLOW-UP RESULTS
--- NOTE | 2020-05-08 19:00 | NUR ---
RECD PT IN BED,RESTING QUIETLY. NO DISTRESS NOTED,BLADDER NOT DISTENDED,IVF INFUSING WELL.REMAINS KATIANA VERBAL.
[2020-05-08 20:00] VITALS: BP 134/61
[2020-05-08] MEDS: TAMSULOSIN HCL 0.4 MG CAP.SR.24H PO SCH (21:19)
[2020-05-09 04:09] VITALS: BP 151/79
[2020-05-09] MEDS: PANTOPRAZOLE SODIUM 40 MG TABLET.DR PO SCH (06:31)
[2020-05-09 07:03] LABS: BASOPHILS % (AUTO) 0.4 % (0.0-2.0); EOSINOPHILS # (AUTO) 0.4 K/uL (0.0-0.7); EOSINOPHILS % (AUTO) 7.2 % (0.0-7.0); HEMATOCRIT 40.8 % (36.7-47.1); LYMPHOCYTES # (AUTO) 1.3 K/uL (20.0-40.0); LYMPHOCYTES % (AUTO) 21.8 % (20.5-51.5); MEAN CORPUSCULAR HEMOGLOBIN 32.6 uug (23.8-33.4); MEAN CORPUSCULAR HGB CONC 34 g/dL (32.5-36.3); MEAN CORPUSCULAR VOLUME 94.9 fL (73.0-96.2); MONOCYTES # (AUTO) 0.6 K/uL (2.0-10.0); MONOCYTES % (AUTO) 9.5 % (0.0-11.0); NEUTROPHILS # (AUTO) 3.6 K/uL (1.8-8.9); NEUTROPHILS % (AUTO) 61.1 % (38.5-71.5); PLATELET COUNT (AUTO) 193 K/uL (152-348); WHITE BLOOD COUNT (AUTO) 5.9 K/uL (3.6-10.2)
[2020-05-09 07:33] LABS: CREATININE 0.8 mg/dL (0.6-1.3); MAGNESIUM 2.1 mg/dL (1.8-2.4); POTASSIUM 3.9 mmol/L (3.5-5.1)
[2020-05-09] MEDS: IV D5 1/2 NS 1000 ML 1,000 ML IV PRN ×2 (07:52→21:25)
--- NOTE | 2020-05-09 07:53 | NUR ---
KEPT DRY AND CLEAN,VOIDED 2X,STILL NON VERBAL,SLEPT AT SHORT INTERVALS.
[2020-05-09] MEDS: risperiDONE 1 MG TABLET PO SCH ×2 (08:14→20:24)
[2020-05-09] MEDS: TAMSULOSIN HCL 0.4 MG CAP.SR.24H PO SCH ×2 (08:14→20:24)
[2020-05-09 12:00] VITALS: BP 143/85
--- NOTE | 2020-05-09 13:31 | NUR ---
pt went to [facility] for mri via ambulances in stable condition
--- NOTE | 2020-05-09 14:40 | NUR ---
pt came back from [facility] via ambulances
[2020-05-09 16:00] VITALS: BP 143/79
[2020-05-09] MEDS ORDERED: HYDR12.55 PO (17:21)
[2020-05-09] MEDS ORDERED: CAND32TA20 PO (17:21)
[2020-05-09] MEDS ORDERED: ERGO500040 PO (17:21)
[2020-05-09] MEDS ORDERED: RISP1TAB7 PO (17:21)
[2020-05-09] MEDS ORDERED: DILT30TA2 PO (17:21)
[2020-05-09] MEDS ORDERED: TAMS-3 PO (17:21)
[2020-05-09 20:19] VITALS: BP 139/85
[2020-05-10 05:34] VITALS: BP 151/84
[2020-05-10] MEDS: PANTOPRAZOLE SODIUM 40 MG TABLET.DR PO SCH (06:03)
[2020-05-10 07:11] LABS: BASOPHILS % (AUTO) 0.3 % (0.0-2.0); EOSINOPHILS # (AUTO) 0.4 K/uL (0.0-0.7); HEMATOCRIT 41.6 % (36.7-47.1); HEMOGLOBIN 14.4 g/dL (12.5-16.3); LYMPHOCYTES # (AUTO) 1.4 K/uL (20.0-40.0); LYMPHOCYTES % (AUTO) 26.3 % (20.5-51.5); MEAN CORPUSCULAR HGB CONC 35 g/dL (32.5-36.3); MEAN CORPUSCULAR VOLUME 95.2 fL (73.0-96.2); MONOCYTES # (AUTO) 0.6 K/uL (2.0-10.0); MONOCYTES % (AUTO) 10.2 % (0.0-11.0); NEUTROPHILS % (AUTO) 55.2 % (38.5-71.5); PLATELET COUNT (AUTO) 184 K/uL (152-348); RED BLOOD CELL COUNT(AUTO) 4.37 MIL/uL (4.06-5.63); WHITE BLOOD COUNT (AUTO) 5.4 K/uL (3.6-10.2)
[2020-05-10 07:32] LABS: CREATININE 0.9 mg/dL (0.6-1.3); PHOSPHOROUS 3.6 mg/dL (2.5-4.9); POTASSIUM 3.7 mmol/L (3.5-5.1)
[2020-05-10] MEDS: TAMSULOSIN HCL 0.4 MG CAP.SR.24H PO SCH ×2 (09:24→20:44)
[2020-05-10] MEDS: risperiDONE 1 MG TABLET PO SCH ×2 (09:26→20:44)
[2020-05-10] MEDS: LOSARTAN POTASSIUM 50 MG TABLET PO SCH (11:30)
[2020-05-10 11:37] VITALS: BP 132/66
[2020-05-10] MEDS: IV D5 1/2 NS 1000 ML 1,000 ML IV PRN (11:38)
[2020-05-10 16:00] VITALS: BP 127/65
[2020-05-10] MEDS: ACETAMINOPHEN 325 MG TABLET PO PRN (16:14)
--- NOTE | 2020-05-10 18:34 | NUR ---
patient still non verbal, able to eat by himself, given medication as ordered, takes medication whole. incontinent of bladder and bowel, voided 3x and BM x2. check and kept clean and dry, bed at lowest position, bed alarm on. frequent visual check done for safety. will continue to monitor
[2020-05-10 20:47] VITALS: BP 119/78
[2020-05-11] MEDS: IV D5 1/2 NS 1000 ML 1,000 ML IV PRN ×2 (01:21→16:23)
[2020-05-11] MEDS: HYDROCODONE/APAP 5-325MG TABLET PO PRN (01:26)
[2020-05-11 04:20] VITALS: BP 148/90
[2020-05-11] MEDS: PANTOPRAZOLE SODIUM 40 MG TABLET.DR PO SCH (06:10)
--- NOTE | 2020-05-11 06:27 | NUR ---
Pt rested well in between care; pt pulled out his iv last night; new IV to left hand; safety maintained; able to take meds; continue to monitor; continue plan of care.
[2020-05-11 06:49] LABS: BASOPHILS % (AUTO) 0.7 % (0.0-2.0); EOSINOPHILS # (AUTO) 0.6 K/uL (0.0-0.7); EOSINOPHILS % (AUTO) 9.4 % (0.0-7.0); HEMATOCRIT 41.8 % (36.7-47.1); HEMOGLOBIN 14.2 g/dL (12.5-16.3); LYMPHOCYTES # (AUTO) 1.7 K/uL (20.0-40.0); LYMPHOCYTES % (AUTO) 28.6 % (20.5-51.5); MEAN CORPUSCULAR HEMOGLOBIN 32.5 uug (23.8-33.4); MEAN CORPUSCULAR HGB CONC 34 g/dL (32.5-36.3); MEAN CORPUSCULAR VOLUME 95.5 fL (73.0-96.2); MONOCYTES # (AUTO) 0.6 K/uL (2.0-10.0); MONOCYTES % (AUTO) 10.2 % (0.0-11.0); NEUTROPHILS % (AUTO) 51.1 % (38.5-71.5); PLATELET COUNT (AUTO) 194 K/uL (152-348); RED BLOOD CELL COUNT(AUTO) 4.37 MIL/uL (4.06-5.63); WHITE BLOOD COUNT (AUTO) 5.9 K/uL (3.6-10.2)
[2020-05-11 06:57] LABS: CREATININE 0.8 mg/dL (0.6-1.3); MAGNESIUM 2.2 mg/dL (1.8-2.4); PHOSPHOROUS 3.9 mg/dL (2.5-4.9); POTASSIUM 3.8 mmol/L (3.5-5.1)
--- NOTE | 2020-05-11 07:30 | NUR ---
Received pt in bed, arousable to verbal and tactile stimuli. No acute distress noted, no SOB. Ríos Chaudhry Scale 0/10. R Hand 20 gauge IV patent and intact,IVF infusing at 75 mL/hr. Pt unable to communicate verbally but compliant with care. Safety measures and fall precautions in place. Call light within reach. Will continue to monitor.
[2020-05-11] MEDS ORDERED: CANDESARTAN CILEXETIL 32 MG PO SCH (09:00)
[2020-05-11] MEDS ORDERED: TAMSULOSIN HCL 0.4 MG CAP.SR.24H PO SCH (09:00)
[2020-05-11] MEDS ORDERED: ERGOCALCIFEROL 50,000 UNIT CAPSULE PO SCH (09:00)
[2020-05-11] MEDS: risperiDONE 1 MG TABLET PO SCH ×2 (09:29→20:26)
[2020-05-11] MEDS: TAMSULOSIN HCL 0.4 MG CAP.SR.24H PO SCH ×2 (09:30→20:26)
[2020-05-11] MEDS: HYDROCHLOROTHIAZIDE 12.5 MG CAPSULE PO SCH (09:30)
[2020-05-11] MEDS: LOSARTAN POTASSIUM 50 MG TABLET PO SCH (09:31)
[2020-05-11] MEDS: DILTIAZEM HCL 30 MG TABLET PO SCH (09:31)
[2020-05-11 11:30] VITALS: BP 124/67
[2020-05-11 11:42] VITALS: BP 141/60
[2020-05-11] MEDS ORDERED: TAMS-3 PO (13:53)
[2020-05-11] MEDS ORDERED: ACET325T53 PO (13:53)
[2020-05-11] MEDS ORDERED: LOSA50TA3 PO (13:53)
[2020-05-11] MEDS ORDERED: PANT40TA2 PO (13:53)
[2020-05-11] MEDS ORDERED: RISP1TAB7 PO (13:53)
[2020-05-11] MEDS ORDERED: MAGN400O6 PO (13:53)
[2020-05-11 16:00] VITALS: BP 115/67
--- NOTE | 2020-05-11 19:34 | NUR ---
EOSS: Pt in bed, awake, no acute distress noted. Pt remained non-verbal but compliant with care and medications throughout shift, no a/r noted. VSS. Ríos Chaudhry Scale 0/10. R Hand 20 gauge IV patent and intact, IVF infusing at 75 mL/hr. Spoke with pt's Joycelyn, discussed plan of care, medications administered during shift, lab results, referred to Case Management for questions about discharge. Pt kept clean and dry, all needs met. Frequent rounding implemented, safety measures and fall precautions maintained. Call light within reach. Will endorse care to night clerk.
[2020-05-11 21:20] VITALS: BP 112/68
--- NOTE | 2020-05-12 05:05 | NUR ---
Pt was discharged to home with homehealth by ambulance. All proper paperwork given and teaching was attempted but no verbal understanding were given. Pt is on room air and in no acute distress.
[2020-05-12] MEDS: IV D5 1/2 NS 1000 ML 1,000 ML IV PRN (05:48)
[2020-05-12] MEDS: PANTOPRAZOLE SODIUM 40 MG TABLET.DR PO SCH (06:21)
--- NOTE | 2020-05-12 07:40 | NUR ---
Received pt in bed. In no acute distress, On room air. Responds to name and tactile stimuli call light in reach and safety measures in place. will continue to monitor
[2020-05-12] MEDS: TAMSULOSIN HCL 0.4 MG CAP.SR.24H PO SCH (08:47)
[2020-05-12] MEDS: HYDROCHLOROTHIAZIDE 12.5 MG CAPSULE PO SCH (08:47)
[2020-05-12] MEDS: LOSARTAN POTASSIUM 50 MG TABLET PO SCH (08:47)
[2020-05-12] MEDS: risperiDONE 1 MG TABLET PO SCH (08:47)
[2020-05-12] MEDS: DILTIAZEM HCL 30 MG TABLET PO SCH (08:50)
--- NOTE | 2020-05-12 10:32 | NUR ---
10:00am: This SW spoke with AJH Macdonald and patient's attending physician Kaelyn Jewell NP, regarding plan of care and discharge plans. Based on patient's ongoing care needs, the discharge plan that is recommended is SNF placement. DC orders in chart. Per Renae, patient's is not in agreement with SNF placement, and is requesting inpatient psychiatric hospitalization, however patient currently does not qualify for inpatient psychiatric hospitalization due to his current level of care. SW to follow up with patient's to discuss a safe discharge plan, and will coordinate with patient's physician and case management.
[2020-05-12 11:53] VITALS: BP 164/93
[2020-05-12 16:00] VITALS: BP 138/85
[2020-05-12] MEDS: HYDROCODONE/APAP 5-325MG TABLET PO PRN (16:01)
--- NOTE | 2020-05-12 16:20 | NUR ---
10:36am: SW called patients' family, and spoke with daughter Nima, . Nima stated that patient's was not available, as she was running errands for another family crisis. SW discussed the recommended safe discharge plan with Nima, stating that given patient's level of care needs, the treating team recommends that a SNF placement would be safest for the patient. Nima stated that the family would prefer patient go to an inpatient psychiatric hospital, but SW explained to Nima that patient's level of care needs would not qualify him for inpatient psychiatric hospitalization at this time. SW informed Nima that patient has been seen by neurology and psychiatry, and patient has been started on psychotropic medications, which can also be monitored and managed at the SNF. Nima stated that the family does not want SNF, and would rather take the patient home. Nima asked if patient could be discharge tomorrow, but this SW explained that the discharge orders were set yesterday, 05/11, and that it could not be delayed any further. SW explained to Nima that patient would need to be discharged by 6pm tonight, and Nima expressed understanding and stated that she would let her mother (patients ) know. Nima also stated that the family would like to speak with the psychiatrist, and SW stated that SW would coordinate this. This SW informed patients physician Kaelyn Romero NP, of the familys preferred discharge plan. SW also informed case finishing machine adjuster Renae of the familys preferred discharge plan. Renae to coordinate discharge with the family. APS report was also discussed with Kaelyn, and Kaelyn is in agreement with making an APS report due to concerns about about whether the patient's family taking the patient home is a safe discharge decision by the family. PLAN: SW to make APS report. SW to also coordinate for Dr. Brian (treating psychiatrist) to speak with patients family.
--- NOTE | 2020-05-12 16:22 | NUR ---
SW spoke with Dr. Brian, , and relayed family's request to speak with him. Dr. Brian stated he would call the family, and this SW provided Dr. Brian with the phone number, . Dr. Brian made aware by this SW that patient has discharge orders for today, and that family plans to take the patient home.
--- NOTE | 2020-05-12 16:54 | NUR ---
APS report made for concerns of family taking patient home as an unsafe discharge. APS report # [id number].
[2020-05-12] MEDS ORDERED: QUETIAPINE FUMARATE 25 MG TABLET PO SCH (17:00)
--- NOTE | 2020-05-12 17:05 | NUR ---
Resources for outpatient mental health services were included in patient's DC instructions packet folder. The resources included: 1)[facility] [address], [address] [place] [address] 2)[facility] [address] [place] [address] 3)[facility]. [address] [place] [address] Call: [phone] 4)[facility] [address] [place] [address]
[2020-05-12] MEDS ORDERED: risperiDONE 1 MG/ML UDC PO SCH (21:00)
[2020-05-14 13:06] LABS: *HSV 1/2 PCR 1DNA CSF Negative (Negative); *HSV 1/2 PCR 2DNA CSF Negative (Negative)
--- NOTE | 2020-05-23 15:20 | NUR ---
CHE received a voicemail message from [facility] CHE Parks, . CHE called Kasey, and was unable to connect with her. CHE left Kasey a voicemail message, asking her to call this CHE back.
--- NOTE | 2020-05-27 15:41 | NUR ---
CHE received a call back from Kasey, ALBERTO BOLTON [phone], in response to the voicemail message this SW had left [facility] on 05/23. Kasey wanted to know the current location of the patient, and CHE informed Kasey that patient was discharged home on 05/12. Kasey thanked CHE for this information and stated that she would follow-up with the family and patient.
== END 2020-05-12 17:05 | disposition home health service (06) | DRG 52 ==
LOC: ER 23:49 → MEDSURG3 05-07 05:26
PROVIDERS: ADMIT Registered Nurse; ATTEND Registered Nurse
PROC: B01BZZZ Fluoroscopy of Spinal Cord (ICD-10-PCS; principal; 2020-05-08)
PROC: 009U3ZX Drainage of Spinal Canal, Percutaneous Approach, Diagnostic (ICD-10-PCS; principal; 2020-05-08)
DX: G93.41 Metabolic encephalopathy (principal); F31.9 Bipolar disorder, unspecified; I10 Essential (primary) hypertension; I48.91 Unspecified atrial fibrillation; Z74.09 Other reduced mobility; F20.9 Schizophrenia, unspecified; M54.9 Dorsalgia, unspecified; D68.69 Other thrombophilia; G20 Parkinson's disease; F02.80 Dementia in other diseases classified elsewhere, unspecified severity, without behavioral disturbance, psychotic disturbance, mood disturbance, and anxiety; R33.9 Retention of urine, unspecified; R47.01 Aphasia; R40.2121 Coma scale, eyes open, to pain, in the field [EMT or ambulance]; R40.2221 Coma scale, best verbal response, incomprehensible words, in the field [EMT or ambulance]; R40.2351 Coma scale, best motor response, localizes pain, in the field [EMT or ambulance]
CPT/HCPCS: 36415; 62270; 71045; 83735; 84100; 84157; 84443; 85025; 85730; 87205; 93005; 95819; A4663; C1758; G0378; G0480; J3490